=== PATIENT | female | born 1960 | race Caucasian/White ===

== ENCOUNTER → 2020-07-06 11:57 | Outpatient (CLI) | payer OTHER, SELFPAY ==
--- NOTE | 2020-07-06 12:04 | US_ITS ---
STUDY: RENAL ULTRASOUND - COMPLETE REASON FOR EXAM: Female, 59 years old. UTI TECHNIQUE: Ultrasound evaluation of the kidneys was performed with real-time and static porras-scale imaging. COMPARISON: None. FINDINGS: RIGHT KIDNEY: Normal location of the right kidney, which is normal in size. The right kidney measures 12.2 cm x 5.8 cm x 5.4 cm. There is a normal cortex of the right kidney. The renal cortex measures 1.2 cm. 2 renal cysts are seen. The larger measures 2.8 cm x 2.4 cm by 2.6 cm. Intrarenal calculus measuring 1.5 cm x 1.1 cm x 0.6 cm. There is no right hydronephrosis. DISTAL RIGHT URETER: There is non-visualization of the distal right ureter. There is no demonstrated right ureterovesical junction calculus. There is a visualized right ureteral jet. LEFT KIDNEY: Normal location of the left kidney, which is normal in size. The left kidney measures 12.7 cm x 5.1 cm x 6 cm. There is a normal cortex of the left kidney. The renal cortex measures 1.5 cm. There is a 1.3 cm x 1.4 cm x 1.2 cm cyst. There are no left renal calculi. There is mild hydronephrosis of the left kidney. DISTAL LEFT URETER: There is non-visualization of the distal left ureter. There is no demonstrated left ureterovesical junction calculus. There is a visualized left ureteral jet. BLADDER: The distended urinary bladder has a volume of 150 ml. There is a normal wall thickness of the distended urinary bladder. There is no demonstrated mass within the urinary bladder. There are no demonstrated bladder calculi. US/Kidney and Bladder IMPRESSION: Bilateral renal cysts. 1.5 cm x 1.1 cm x 0.6 cm right intrarenal calculus in the midpole calyx. Mild left hydronephrosis. Electronically Signed: Jasper Petersen MD at 15:20 EDT , Service support ,
== END ==
PROVIDERS: PCP Family Medicine; Referring Provider Urology; Visit Provider Urology
DX: N39.0 Urinary tract infection, site not specified (principal)
CPT/HCPCS: 76770

== ENCOUNTER → 2020-08-04 16:36 | Outpatient (CLI) | payer OTHER, SELFPAY ==
--- NOTE | 2020-08-04 16:40 | CT_ITS ---
STUDY: CT ABDOMEN AND PELVIS WITH AND WITHOUT CONTRAST REASON FOR EXAM: Female, 59 years old. Recurrent bladder infections, lithotripsy kidney stones hydronephrosis RADIATION DOSAGE (If Supplied By Facility): CTDIvol = ( 23.74 ) mGy, DLP = ( 3381.69 ) mGycm TECHNIQUE: Transaxial images were obtained from the dome of the diaphragm to the symphysis pubis without oral contrast. IV 100mL Isovue-300 was administered. Sagittal and coronal images were reconstructed. Individualized dose optimization techniques were used for this CT. COMPARISON: 06 July 2020 ultrasound FINDINGS: The visualized lung bases are unremarkable. The visualized portions of the heart are within normal limits. Normal liver. Gallbladder is removed.. Normal spleen. Normal pancreas. Normal bilateral adrenal glands. There is a 1 cm stone in the right orbital region calyx and 3 mm stone in the upper pole calyx. There are no ureteral stones or hydronephrosis. There are simple right renal cyst and proteinaceous left renal 1 cm exophytic cyst not requiring further diagnostic imaging. There is no intestinal obstruction. There is sigmoid diverticulosis without diverticulitis. Normal abdominal aorta. Normal inferior vena cava. Normal retroperitoneum. Normal urinary bladder. Normal abdominal wall. Normal osseous structures. CT/CT Abd/Pelvis W/WO Contrast IMPRESSION: 1. Right renal calculi, largest 1 cm, no obstruction or hydronephrosis. Urology referral advised. Electronically Signed: Diane Luke MD at 17:41 EDT Tel , Service support ,
== END ==
PROVIDERS: PCP Family Medicine; Referring Provider Urology; Visit Provider Urology
DX: N13.30 Unspecified hydronephrosis (principal); N20.0 Calculus of kidney
CPT/HCPCS: 74178; Q9967

== ENCOUNTER 2020-09-05 07:06 | Day surgery (SDC) | payer OTHER, SELFPAY ==
[2020-09-05 07:30] LABS: Bedside Glucose 130 mg/dL (70-110)
[2020-09-05 07:33] VITALS: BP 135/83; PULSE 70; RESP 16; TEMP 35.9; O2SAT 99; BMI 34.6
[2020-09-05] MEDS: Lactated Ringers 1,000 ML 100 ML IV (07:39)
--- NOTE | 2020-09-05 07:50 | HP.PCM_ITS ---
HPI - General HPI Narrative BERHANE WOOD, is a 59 F who presents for definitive management of a right- sided stone approximately 1 cm in size. She has been having urinary tract infections, back pain and blood in her urine. Informed consent was obtained. [facility] Medical History (Updated 09/05/20 @ 07:[address] Kaela Ariza MD) Alcohol use Back pain Blackout Bladder disease Depression Diabetes Dietary restriction Gastric reflux High cholesterol History of edema History of IBS History of renal disease History of stress test Hypertension Low iron Marijuana use Non-smoker Right renal stone Seizures Urinary (tract) obstruction Urinary tract infection Wears glasses Home Medications Vimpat 100 mg PO BID 08/09/20 [History Last Taken 09/05/20 06:00] bisoprolol-hydrochlorothiazide 1 tab PO DAILY 08/09/20 [History Last Taken Unkn own] cephalexin 250 mg PO QHS 08/09/20 [History Last Taken Unknown] citalopram [Celexa] 40 mg PO DAILY 08/09/20 [History Last Taken Unknown] glyburide 2.5 mg PO DAILY 08/09/20 [History Last Taken Unknown] levetiracetam [Keppra] 1,500 mg PO BID 08/09/20 [History Last Taken 09/05/20 06:00] metformin 500 mg PO DAILY 08/09/20 [History Last Taken Unknown] omeprazole 20 mg PO DAILY 08/09/20 [History Last Taken Unknown] pravastatin 40 mg PO QHS 08/09/20 [History Last Taken Unknown] pregabalin 300 mg PO BID 08/09/20 [History Last Taken 09/05/20 06:00] cephalexin 500 mg PO Q12 3 Days #6 capsule 09/05/20 [Rx Last Taken Unknown] oxycodone-acetaminophen 2 tab PO Q8H PRN PRN 7 Days #20 tab 09/05/20 [Rx Last Taken Unknown] phenazopyridine [Pyridium] 200 mg PO TID PRN PRN 7 Days #30 tab 09/05/20 [Rx Last Taken Unknown] Allergy/AdvReac Type Severity Reaction Status Date / Time Penicillins Allergy Rash Verified 09/05/20 07:32 Sulfa (Sulfonamide Allergy Rash Verified 09/05/20 07:32 Antibiotics) Surgical History History of lithotripsy Hx laparoscopic cholecystectomy Hx of colonoscopy Hx of foot surgery Hx of lymph node biopsy Hx of tonsillectomy Social History Smoking Status: Never smoker ROS Constitutional Constitutional: Denies change in weight, fatigue, fever(s) or poor appetite Eyes Eyes: Denies change in vision ENT HEENT: Reports systems reviewed and no addt'l complaints, except as documented Cardiovascular Cardiovascular: Denies abdominal pain, chest pain, dyspnea, lightheadedness or pedal edema Respiratory/Chest Respiratory/Chest: Denies change in mental status, cough, dyspnea or portable oxygen @ home Gastrointestinal Gastrointestinal: Denies abdominal pain, anorexia, nausea or vomiting Genitourinary Genitourinary: Reports low back pain, urinary frequency and urinary urgency; Denies dysuria Musculoskeletal Musculoskeletal: Denies abnormal gait or extremity pain Integumentary Integumentary: Denies rash, skin pain or wounds Neurologic Neurologic: Denies abnormal gait, abnormal movements, abnormal speech or burning sensations Psychiatric Psychiatric: Denies behavioral changes, cognitive impairment or confusion Endocrine Endocrinology: Denies fatigue, flushing or palpitations Hematologic/Lymphatic Hematologic/Lymphatic: Denies easy bleeding or easy bruising Vital Signs Vital Signs Vital Signs: 09/05/20 07:33 Temperature 96.7 F L Temperature Source Temporal Pulse Rate 70 Respiratory Rate 16 Respiratory Pattern Normal Blood Pressure 135/83 H Blood Pressure Mean 100 Blood Pressure Source Monitor Blood Pressure Position Sitting Blood Pressure Location Right Arm Pulse Ox 99 Oxygen Delivery Method Room Air Weight Weight: 91.5 kg Body Mass Index (BMI) 34.6 Physical Exam Const alert, oriented x3 and no apparent distress General Appearance: cooperative, comfortable and well kempt HEENT normocephalic, head/scalp atraumatic, hearing grossly normal bilaterally, external ears normal, external nose normal, moist oral mucous membranes, dentition normal and gingiva normal Neck supple General: trachea midline Lymph Lymphatic: no lymphedema noted Chest inspection of chest normal Chest: symmetrical chest wall rise Resp normal respiratory effort, normal air movement, no retractions and no use of accessory muscles Effort and Inspection: able to speak in complete sentences and symmetric chest movement Cardio regular rate and regular rhythm GI soft to palpation, non-tender and non-distended external exam normal Back/Spine normal to inspection Extremity normal to inspection Skin no rashes or lesions noted, no wounds, skin turgor normal, no jaundice, no petechiae and no mottling Neuro oriented x3, CN's II-XII intact bilaterally, moves all extremities and no focal motor deficits Psych mental status grossly normal, thought process normal, cooperative, affect normal and speech normal Results Lab / Micro Data Labs: Laboratory Results - last 24 hr 09/05/20 07:23 POC Glucose 130 H Assessment & Plan Assessment/Plan (1) Right renal stone: PLAN: proceed with right renal extracorporal shockwave lithotripsy, cystoscopy and right ureteral stent insertion Informed consent was obtained (2) Urinary (tract) obstruction: Procedure Criteria Type of Procedure Procedure Type: Elective Elective Risks - COVID COVID Risk Discussion: The surgeon/proceduralist and patient have discussed in detail the risk of exposure to and/or potential harm posed by the COVID-19 virus with having a surgery/procedure at this time versus the risk of delaying the surgery/procedure. It is not possible to know either the risk of delaying the surgery or procedure or chance of getting an infection with perfect accuracy, but a joint decision was made between the patient and the surgeon/proceduralist to proceed at this time with the scheduled surgery/procedure as indicated on the consent form.
--- NOTE | 2020-09-05 07:58 | PCM.OPRPT ---
Problems Associated Problem List Diagnoses (1) Urinary tract infection: (2) Right renal stone: Report of Operation Date of Procedure: 09/05/20 Pre-Operative Diagnosis: Right renal calculus, recurrent urinary tract infections Post-Operative Diagnosis: Same Surgery/Procedure Performed:: Cystoscopy, right ureteral stent insertion, right extracorporal shockwave lithotripsy Surgeon: Kaela Ariza Type of Anesthesia: General Description of Procedure: The patient is a 59-year-old female with a history of recurrent urinary tract infections. On evaluation she was found to have a 1 cm right renal calculus with no hydronephrosis. She has a history of stones in the past as well requiring lithotripsy. Informed consent was obtained to proceed with definitive intervention. The patient was taken to the operating room and placed on the operating room table. Anesthesia monitored the head, neck, airway, IV access and vital signs throughout the case. Once anesthesia was appropriately administered the patient was placed into dorsal lithotomy position was prepped and draped in usual sterile fashion. The cystoscope was inserted through the urethra under direct visualization into the urinary bladder. There were no urethral abnormalities identified. The bladder mucosa in its entirety was visualized. There were no masses, lesions, areas of ulceration or erythema, foreign body identified. At this time the right ureteral orifice was identified and intubated with a 0.035 Glidewire. A 6 Lebanese 24 cm JJ stent was inserted over the Glidewire with good curling achieved in the renal pelvis as well as the urinary bladder. The patient's bladder was then emptied. The cystoscope was removed. The patient was then aligned with a lithotripter. The stone was easily visualized. 3000 shocks were applied to the stone which did appear to be fragmented at the conclusion of the case. The patient was then awakened and taken to the recovery room in good condition. There were no complications during this procedure. Grafts/Implants Used: JJ stent Complications none Admit VTE Documentation VTE Present on Admission: Yes VTE Mechan Device Prophylaxis: SCD's VTE Pharm Prophylaxis ordered?: No Reason prophylaxis not ordered:: Treatment Not Indicated
--- NOTE | 2020-09-05 08:03 | PCM.DC ---
Discharge Instructions Diet Discharge Diet: No restrictions Activity Discharge Activity: Return to Normal Activity and - (no narcotics while driving.) Dressing / Incision Call your doctor if you observe: Fever of 101 or Higher, Inability to urinate, Inability to have a bowel movement, Calf discomfort and Uncontrolled pain Follow Up Care Please Follow Up With: Kaela Ariza MD When: in 2-3 weeks, call office for appt Test Results: Test results from this visit will be discussed in further detail at your follow-up appointment, if applicable. Discharge Plan Admission Attending Provider: Kaela Ariza Primary Care Provider: Xiang Tobias Discharge Orders/Prescriptions Prescriptions: New oxycodone-acetaminophen [oxycodone-acetaminophen] 1 TABLET tablet 2 tab PO Q8H PRN PRN (Reason: Pain) 7 Days Qty: 20 RF: 0 cephalexin [cephalexin] 500 MG capsule 500 mg PO Q12 3 Days Qty: 6 RF: 0 phenazopyridine [Pyridium] 200 MG tablet 200 mg PO TID PRN PRN (Reason: Bladder Spasms) 7 Days Qty: 30 RF: 0 Continued metformin 500 mg Tablet 500 mg PO DAILY RF: 0 citalopram [Celexa] 40 mg Tablet 40 mg PO DAILY RF: 0 pravastatin 40 mg Tablet 40 mg PO QHS RF: 0 glyburide 2.5 mg Tablet 2.5 mg PO DAILY RF: 0 cephalexin 250 mg Capsule 250 mg PO QHS RF: 0 bisoprolol-hydrochlorothiazide 5-6.25 mg Tablet 1 tab PO DAILY RF: 0 pregabalin 300 mg Capsule 300 mg PO BID RF: 0 levetiracetam [Keppra] 1,000 mg Tablet 1,500 mg PO BID RF: 0 omeprazole 20 mg Tablet,Delayed Release (Dr/Ec) 20 mg PO DAILY RF: 0 Vimpat 100 mg Tablet 100 mg PO BID RF: 0 Referrals / Follow Up: Xiang Tobias DO [Primary Care Provider] - Disposition Disposition (needs filled in before D/C Order can be placed): Home, Self Care
[2020-09-05] MEDS: Ciprofloxacin 400 MG/200 ML BAG 200 MG IV (09:00)
[2020-09-05 10:03] VITALS: BP 135/83; BP 137/89; PULSE 97; RESP 16; TEMP 36.2; O2SAT 96
[2020-09-05 10:15] VITALS: BP 131/74; BP 135/83; PULSE 96; RESP 16; O2SAT 100
[2020-09-05 10:30] VITALS: BP 135/83; BP 145/81; PULSE 89; RESP 16; O2SAT 100
[2020-09-05 10:45] VITALS: BP 134/77; BP 135/83; PULSE 86; RESP 16; TEMP 36.3; O2SAT 97
[2020-09-05 10:45] LABS: Bedside Glucose 127 mg/dL (70-110)
[2020-09-05 11:15] VITALS: BP 135/83
== END 2020-09-05 11:37 | disposition home or self-care (01) ==
LOC: SDC 07:06 → AC 07:07
PROVIDERS: PCP Family Medicine; Referring Provider Urology; Visit Provider Urology
PROC: (CPT 50590; principal; 2020-09-05 08:40)
DX: N20.0 Calculus of kidney (principal); N39.0 Urinary tract infection, site not specified; F32.9 Major depressive disorder, single episode, unspecified; E11.9 Type 2 diabetes mellitus without complications; K58.9 Irritable bowel syndrome, unspecified; E78.00 Pure hypercholesterolemia, unspecified; K21.9 Gastro-esophageal reflux disease without esophagitis; R56.9 Unspecified convulsions; I10 Essential (primary) hypertension; Z79.84 Long term (current) use of oral hypoglycemic drugs; Z87.442 Personal history of urinary calculi; Z79.899 Other long term (current) drug therapy
CPT/HCPCS: 50590; 52332; 82962; J7120; C2617; J0744; J2405

== ENCOUNTER → 2020-09-21 08:54 | Outpatient (CLI) | payer OTHER, SELFPAY ==
[2020-09-05 07:33] VITALS: BMI 34.6
--- NOTE | 2020-09-21 08:58 | RAD_ITS ---
INDICATION: RENAL CALCULUS EXAMINATION/TECHNIQUE: X-RAY - XR Abdomen 1 View COMPARISON: None FINDINGS: BOWEL GAS PATTERN: Non-obstructive. No bowel or stomach distention. FREE AIR: Not assessed on a single supine view. ORGANOMEGALY: Not seen. CALCIFICATIONS: Multiple calcifications project over the right kidney, ranging from 3 to 5 mm. Right nephroureteral stent is in place. LOWER CHEST: No acute pathology. BONES AND SOFT TISSUES: No acute pathology. RAD/Abdomen Single View IMPRESSION: Multiple right kidney calculi, ranging from 3 to 5 mm. Electronically Signed: Jaya Adams MD at 22:57 EDT Tel , Service support ,
== END ==
PROVIDERS: PCP Family Medicine; Referring Provider Urology; Visit Provider Urology
DX: N20.0 Calculus of kidney (principal)
CPT/HCPCS: 74018

== ENCOUNTER → 2021-10-22 | Outpatient (CLI) | payer OTHER, SELFPAY ==
--- NOTE | 2021-10-22 10:19 | RAD_ITS ---
STUDY: XR Abdomen 1 View 10/22/2021 10:26 AM REASON FOR EXAM: Female, 60 years old. ABDOMINAL PAIN KIDNEY STONE TECHNIQUE: XR Abdomen 1 View COMPARISON: 09/21/2020 FINDINGS: There are multiple metallic clips in the right upper quadrant. This is consistent for a cholecystectomy. There are calcified phleboliths in the pelvis. This makes differentiation with distal ureteral stones difficult. There is a moderate amount of colonic fecal material. There is no demonstrated free abdominal air. The visualized liver, spleen and kidneys are grossly normal in size and morphology. Normal soft tissue structures. There are diffuse degenerative changes of the visualized lumbar spine. RAD/Abdomen Single View IMPRESSION: Constipation. Electronically Signed: Adiel Crockett MD at 20:16 EDT ,
== END | disposition home or self-care (01) ==
LOC: MTRAD 10:17
PROVIDERS: PCP Family Medicine; Referring Provider Urology; Visit Provider Urology
DX: N20.0 Calculus of kidney (principal)
CPT/HCPCS: 74018